=== PATIENT | female | born 1995 | race Caucasian/White ===

== ENCOUNTER 2018-11-25 05:10 | Emergency (ER) | payer BC ==
[~2018-11-25] VITALS: Ht 165.1 cm; Wt 73.0 kg
[2018-11-25 05:12] VITALS: Ht 165.1 cm; Wt 73.0 kg
[2018-11-25 06:34] LABS: PLATELET COUNT 284 x10^3mcL (130-400); RED CELL DISTRIBUTION WIDTH 13.8 % (11.5-14.5)
[2018-11-25 06:51] LABS: CALCIUM 9.1 mg/dL (8.5-10.1); CARBON DIOXIDE 20.7 mmol/L (21-32); CHLORIDE SERUM 105 mmol/L (98-107); CREATININE SERUM 0.8 mg/dL (0.6-1.0); GFR1 > 60 mL/min; GLUCOSE SERUM 167 mg/dL (74-106); POTASSIUM SERUM 5.2 mmol/L (3.5-5.1); SODIUM SERUM 136 mmol/L (136-145)
[2018-11-25 06:55] LABS: ALBUMIN 3.5 g/dL (3.4-5.0); ALKALINE PHOSPHATASE 49 U/L (46-116); ALT/SGPT 21 U/L (14-59); AST/SGOT 9 U/L (15-37); BILIRUBIN TOTAL 0.21 mg/dL (0.20-1.00); CHOLESTEROL 151 mg/dL (<200); HDL CHOLESTEROL 45 mg/dL (40-60); LIPASE 74 IU/L (73-393); MAGNESIUM 1.7 mg/dL (1.8-2.4); TOTAL PROTEIN, SERUM 6.5 g/dL (6.4-8.2)
[2018-11-25 08:10] LABS: AMPHETAMINE QUAL UR NONE DETECTED (See below)
[2018-11-25 08:37] LABS: UA SPECIFIC GRAVITY >1.030 (1.005-1.035)
[2018-11-25 08:38] LABS: microscopic required? YES
[2018-11-25 08:39] LABS: urine erythrocyte NEGATIVE (NEGATIVE)
[2018-11-25 08:57] LABS: BAND NEUTROPHIL 0 % (0-10); BASOPHIL 0 % (0-2); MONOCYTE 1 % (0-7); SEGMENTED NEUTROPHILS 97 % (37-75); rbc morphology (normal/abnorm) ABNORMAL (NORMAL)
[2018-11-25 08:58] LABS: PLATELET MORPHOLOGY PLATELETS NORMAL
[2018-11-25 09:48] VITALS: BP 118/64
== END 2018-11-25 09:48 | disposition home or self-care (01) ==
LOC: ED 05:10
PROVIDERS: Emergency Medicine
DX: O23.41 Unspecified infection of urinary tract in pregnancy, first trimester (principal); O99.011 Anemia complicating pregnancy, first trimester; R42 Dizziness and giddiness; R07.89 Other chest pain; D64.9 Anemia, unspecified; Z3A.01 Less than 8 weeks gestation of pregnancy
CPT/HCPCS: 82962; G0480; J7030

== ENCOUNTER 2018-11-28 16:53 | Emergency (ER) | payer BC ==
[~2018-11-28] VITALS: Ht 165.1 cm; Wt 73.5 kg
[2018-11-28 17:16] VITALS: Ht 165.1 cm; Wt 73.5 kg
[2018-11-28 17:51] LABS: UA SPECIFIC GRAVITY <=1.005 (1.005-1.035); microscopic required? YES; urine erythrocyte 3+ (NEGATIVE)
[2018-11-28 18:00] LABS: BASOPHIL % 0.5 % (0-2); PLATELET COUNT 287 x10^3mcL (130-400); RED CELL DISTRIBUTION WIDTH 13.9 % (11.5-14.5)
[2018-11-28 19:31] VITALS: BP 127/82
== END 2018-11-28 19:31 | disposition home or self-care (01) ==
LOC: ED 16:53
PROVIDERS: Emergency Medicine
DX: R31.9 Hematuria, unspecified (principal); R35.0 Frequency of micturition; R10.30 Lower abdominal pain, unspecified; N93.9 Abnormal uterine and vaginal bleeding, unspecified; Z98.890 Other specified postprocedural states
CPT/HCPCS: 36415